=== PATIENT | female | born 2000 | race Caucasian/White ===

== ENCOUNTER 2018-02-17 05:50 | Emergency (ER) | payer SELFPAY ==
[~2018-02-17] VITALS: Ht 170.2 cm; Wt 68.0 kg
[2018-02-17 05:58] VITALS: BP 127/87
--- NOTE | 2018-02-17 06:00 | NUR ---
17/F PRESENTS TO ED WITH FAMILY/FRIEND, C/O N/V THAT STARTED AT 0000. PT DENIES ANY ABD PAIN, FEVER, CONSTIPATION OR DIARRHEA. AOX4, GCS 15, RR EVEN AND UNLABORED. LUNG SOUNDS CLEAR BL. BS ACTIVE X4, ABD SOFT FLAT NONTENDER. HX ASTHMA RX INHALER
--- NOTE | 2018-02-17 06:00 | NUR ---
PT TAKEN TO BED 11
--- NOTE | 2018-02-17 06:02 | NUR ---
Dr. Ramírez evaluating patient at bedside.
[2018-02-17] MEDS ORDERED: ONDANSETRON 4 MG/2 ML VIAL IVP ONE (06:10)
[2018-02-17] MEDS ORDERED: NACL 0.9% 1,000 ML IV ONE (06:10)
[2018-02-17 06:32] LABS: EOSINOPHILS # (AUTO) 0.2 K/uL (0-0.4); HEMATOCRIT 43.8 % (36-48); HEMOGLOBIN 14.2 g/dL (12.0-16.0); LYMPHOCYTES # (AUTO) 0.5 K/uL (2.5-16.5); LYMPHOCYTES % (AUTO) 3.1 % (20.5-51.1); MEAN CORPUSCULAR HEMOGLOBIN 28 pg (27-31); MEAN CORPUSCULAR HGB CONC 32 g/dL (33-37); MEAN CORPUSCULAR VOLUME 87.1 fL (80-94); MONOCYTES # (AUTO) 0.7 K/uL (0.8-1.0); MONOCYTES % (AUTO) 4.6 % (1.7-9.3); NEUTROPHILS # (AUTO) 13.8 K/uL (1.8-7.7); NEUTROPHILS % (AUTO) 91.3 % (42.2-75.2); PLATELET COUNT (AUTO) 219 K/uL (140-450); RED BLOOD CELL COUNT(AUTO) 5.03 MIL/uL (4.20-5.40); RED CELL DISTRIBUTION WIDTH 13.2 % (11.6-13.7); WHITE BLOOD COUNT (AUTO) 15.1 K/uL (4.5-11.0)
[2018-02-17 06:48] LABS: ALBUMIN 3.9 g/dL (3.4-5.0); ANION GAP 16.7 (8-16); CARBON DIOXIDE 25.1 mmol/L (21-32); CREATININE 0.9 mg/dL (0.6-1.3); POTASSIUM 3.8 mmol/L (3.5-5.1); TOTAL BILIRUBIN 0.8 mg/dL (0.0-1.0)
[2018-02-17 07:00] VITALS: BP 118/84
== END 2018-02-17 07:00 | disposition home or self-care (01) ==
LOC: MED 05:50
DX: R11.2 Nausea with vomiting, unspecified (principal); J45.909 Unspecified asthma, uncomplicated; Z88.8 Allergy status to other drugs, medicaments and biological substances
CPT/HCPCS: 36415; 80053; 81025; 83690; 85025; 96361; 96374; 99283; J2405; J7030